=== PATIENT | female | born 1985 ===

== ENCOUNTER → 2019-10-21 09:28 | Outpatient (CLI) | payer OTHER, SELFPAY ==
[2019-10-21 11:29] LABS: Hematocrit 34.5 % (36-46); Hemoglobin 11.7 g/dL (12.0-16.0)
[2019-10-21 11:44] LABS: GTT (PREG) 1 Hour PP 50gm Dose 134 mg/dL (76-139)
== END ==
PROVIDERS: Referring Provider Family Medicine; Visit Provider Family Medicine
DX: Z34.82 Encounter for supervision of other normal pregnancy, second trimester (principal); Z3A.23 23 weeks gestation of pregnancy
CPT/HCPCS: 36415; 82950; 85014; 85018

== ENCOUNTER → 2019-11-17 09:18 | Outpatient (CLI) | payer OTHER, SELFPAY ==
--- NOTE | 2019-11-17 09:22 | DI.US.S_ITS ---
PROCEDURE: US OB LIMITED INDICATIONS: GROWTH- TWINS OUTSIDE/PRIOR DATING DATA: Last menstrual period (LMP): 05/11/19. LMP-based estimated date of delivery (STEPHEN): 02/15/20. First available dating scan (date and location): This study, 11/17/19. Estimated date of delivery (STEPHEN) from first available dating scan: 02/17/20. TECHNIQUE: Real-time scanning was performed of the fetuses, with image documentation and biometric measurements. Endovaginal scanning: Not needed COMPARISON: None. FINDINGS: General: An intrauterine monochorionic-diamniotic twin is present, as evidenced by combined placentas and 2 separate amniotic sacs. Composite amniotic fluid index: 15.2 cm for twin A., 9.8 cm for twin B. Maternal cervical canal: 3.9 cm long. Normal lower limit is 2.5 cm. FETUS A: Fetus is located on the maternal left side, and is in vertex presentation. Amniotic fluid volume: 15.2 cm. Placental position is posterior, without previa. heart rate: 144 beats per minute. biometrics: Biparietal diameter: 6.8 cm, 27 weeks 2 days Head circumference: 24.5 cm, 26 weeks 5 days Abdominal circumference: 20.0 cm, 24 weeks 4 days Femur length: 5.0 cm, 26 weeks 6 days Estimated gestational age from initial scan: not applicable. Composite gestational age from present scan: 26 weeks 3 days Estimated weight and percentile: 853 g, lower 5th percentile Measurement variability for biometric dating: +/- 7 days from 14 weeks to 15 weeks 6 days gestation, +/- 10 days from 16 weeks to 21 weeks 6 days gestation, +/- 2 weeks from 22 weeks to 27 weeks 6 days gestation, +/- 3 weeks for 28 weeks gestation or later. weight reference: 4500 g or EFW >90/95% is considered macrosomia or large for gestational age. EFW <10% is small for gestational age. EFW 5% or less is considered intra-uterine growth restriction. FETUS B: Fetus is located on the maternal right side, and is in vertex presentation. Amniotic fluid volume: 9.8 cm. Placental position is posterior, without previa. heart rate: 147 beats per minute. biometrics: Biparietal diameter: 6.9 cm, 27 weeks 6 days Head circumference: 24.4 cm, 26 weeks 3 days Abdominal circumference: 22.2 cm, 26 weeks 4 days Femur length: 4.9 cm, 26 weeks 3 days Estimated gestational age from initial scan: not applicable. Composite gestational age from present scan: 26 weeks 6 days Estimated weight and percentile: 957 g, 19th percentile Measurement variability for biometric dating: +/- 7 days from 14 weeks to 15 weeks 6 days gestation, +/- 10 days from 16 weeks to 21 weeks 6 days gestation, +/- 2 weeks from 22 weeks to 27 weeks 6 days gestation, +/- 3 weeks for 28 weeks gestation or later. weight reference: 4500 g or EFW >90/95% is considered macrosomia or large for gestational age. EFW <10% is small for gestational age. EFW 5% or less is considered intra-uterine growth restriction. IMPRESSION: Monochorionic diamniotic twin gestation, with each twin demonstrating current vertex presentation and posterior placenta without previa. Amniotic fluid volume overall appears normal for each twin. Estimated weight is at the lower 5th percentile for twin A and at the 19th percentile for twin B. anatomic survey was not performed. There may be additional OB ultrasound studies performed elsewhere which should be reviewed by the supervising FLAME HARDENING MACHINE OPERATOR specialist. Dictated by: Riley Remy M.D. on 11/17/2019 at 13:31 Approved by: Riley Remy M.D. on 11/17/2019 at 13:40
== END ==
PROVIDERS: Referring Provider Family Medicine; Visit Provider Family Medicine
DX: Z36.89 Encounter for other specified antenatal screening (principal); O30.032 Twin pregnancy, monochorionic/diamniotic, second trimester; Z3A.26 26 weeks gestation of pregnancy
CPT/HCPCS: 76812; 76815

== ENCOUNTER 2020-01-04 00:48 | Inpatient (IN) | payer OTHER, SELFPAY ==
--- NOTE | 2020-01-04 01:18 | P.HPOB_ITS ---
OB HPI Date/Time Date of admission: 01/04/20 Date Patient Seen: 01/04/20 Time Patient Seen: 02:00 History of Present Condition Chief complaint: Evaluation of labor : 1 Para: 2 Estimated Date of Delivery: 02/15/20 Estimated Gestational Age (weeks): 34 Narrative: Marilee Hunter is a 34 year old @34+0 with clomid-achieved di/di twins who presented to labor and delivery after SROM at home, fully dilated with both babies in vertex presentation. She delivered Baby A precipitously, and delivered baby B 45 minutes later, augmented by AROM of baby B. She reports that her had been previously uncomplicated, though she transferred care from the [employer] [facility] at 19 weeks. Both babies had been being rex tored and were appropriately grown, and she had had rare contractions but no prior episodes of vaginal bleeding, decreased movement, fevers, chills, or any other complaints obstetrical or otherwise prior to tonight. She denies any contributory medical, surgical, or cigarette making machine catcher history, though history taking at presentation was complicated by her imminent delivery. History of Present care: good care Dating criteria: LMP confirmed by 1st trimester US Ultrasounds: normal mid trimester US Obstetrical complications: none Medical complications: none Preadmission Labs Blood type: O (+) positive -: Antibody screen: negative, Cystic fibrosis screen: negative, GBS status: unknown, HBsAG: negative, HIV: negative and RPR/VDLR: negative -: Chlamydia screen: not detected and Gonorrhea screen: not detected -: Rubella: immune and Varicella: immune Integrated screen: WNL 1 hr GTT: 134 Evaluation Evaluation Baseline heart rate: 120 Variability: Average (6-10) monitor accelerations: Present monitor decelerations: Variable Contraction Frequency (minutes): 2 Uterine Contraction Intensity: Strong/Firm Category of Tracing: II Cervical dilation (cm): 10 Cervical effacement (%): 100 station: +3 PFSH Medical History Infertility (Acute) Surgical History History of tonsillectomy (Acute ~1996) Family History Father No problems noted. Mother No problems noted. Grandfather No problems noted. Grandmother Lung abnormality Heavy smoker Grandmother No problems noted. Grandfather No problems noted. Social History marital status: household members: spouse education level: college (student ) occupational status: unemployed current occupational exposures/hazards: No special geovany needs: No Smoking Status: Never smoker Meds Home Medications and Allergies Home Medications Medication Instructions Recorded Confirmed Type prenat.vits,bonita,[id number] 1 tab PO DAILY #90 tab 12/23/19 01/02/20 Rx zinc 50 mg tablet 50 mg PO DAILY #90 tab 12/23/19 01/02/20 Rx Allergies Allergy/AdvReac Type Severity Reaction Status Date / Time No Known Drug Allergies Allergy Verified 12/23/19 08:20 Review of Systems Constitutional Constitutional: Reports system reviewed and no additional complaints, except as documented Cardiovascular Cardiovascular: Reports system reviewed; no additional complaints, except as documented Respiratory Respiratory: Reports system reviewed and no additional complaints, except as documented Gastrointestinal Gastrointestinal: Reports system reviewed and no additional complaints, except as documented Genitourinary Genitourinary: Reports system reviewed and no additional complaints, except as documented Neurologic Neurologic: Reports system reviewed and no additional complaints, except as documented Exam Const Other: Actively laboring GI Palpation: soft and No tender External Female Exam: external appearance normal OB/External & Speculum: deferred Objective Labs Result Diagrams: 01/04/20 01:20 Assessment and Plan Assessment and Plan Assessment and Plan narrative: This patient presented in active labor, and had a vaginal delivery of both twins shortly thereafter. Her delivery was uncomplicated, and both twins are being transferred to a facility with a NICU. Anticipate maternal discharge within 24 hours to follow baby. Routine care.
--- NOTE | 2020-01-04 01:35 | PC.NURSE ---
addendum: 20G IV placed in patients right forearm by me at 01:20. labs were drawn and labeled at bedside and sent to lab. primary RN aware. blood band tubes drawn and patient blood banded with 2nd RN verification and blood tubes sent to lab. primary RN aware.
--- NOTE | 2020-01-04 01:35 | PC.NURSE ---
20G IV placed by me at 01:20. labs were drawn and labeled at bedside and sent to lab. primary RN aware. blood band tubes drawn and patient blood banded with 2nd RN verification and blood tubes sent to lab. primary RN aware.
[2020-01-04 01:49] LABS: Add Manual Diff / Slide Review NO; Basophils Absolute Auto 0 /uL (0-100); Basophils Percent Auto 0.5 % (0-2); Eosinophils Absolute Auto 100 /uL (0-450); Eosinophils Percent Auto 1.2 % (2-4); Hematocrit 38.6 % (36-46); Hemoglobin 13.4 g/dL (12.0-16.0); Lymphocytes Absolute Auto 2600 /uL (1100-4500); Lymphocytes Percent Auto 37.1 % (25-40); Mean Corpuscular HGB Conc 34.7 % (30-36); Mean Corpuscular Hemoglobin 28.4 PG (26-34); Mean Corpuscular Volume 82.1 fL (80-100); Monocytes Absolute Auto 800 /uL (0-900); Monocytes Percent Auto 12.2 % (3-14); Neutrophils Absolute Auto 3400 /uL (1500-7000); Red Cell Distribution Width 13.6 % (11.6-14.8); White Blood Cell Count 6.9 X10^3/uL (4.5-11.0)
[2020-01-04 02:17] LABS: Platelet Count 102 X10^3/uL (150-400)
--- NOTE | 2020-01-04 03:03 | P.PCNOB_ITS ---
Events: Labor < 37 Weeks Labor & Delivery Delivery date: 01/04/20 Intrapartal events: Precipitous Labor < 3 hours, Acceleration and Deceleration Cervical ripening method: none Induction method: none Delivery augmentation: rupture of membranes Delivery monitor: external FHT and external uterine Route of delivery: L&D Laceration Description: Perineal - 2nd Degree Delivery repair: vicryl Estimated blood loss (mL): 250 Anesthesia type: None Complications: labor Narrative: This patient is a 34yo now , s/p x2 of spontaneous di/di twins at 34+0. The patient presented in active labor, fully dilated and ruptured for clear fluid with twin A and with both twins in vertex presentation. She underwent uncomplicated delivery of twin A after a short second stage, followed by AROM of twin B for clear fluid. Baby B was delivered vaginally shortly thereafter with no complications. Both twins had no nuchal cord, and the shoulders for both delivered with ease. A small 2nd degree perineal laceration was repaired in the usual fashion, though the repair was initially complicated by poor pain control. Due to ongoing mild bright red bleeding and patient intolerance of exams and fundal massage, 1x IM 0.2mg methergine was administered along with [address] Cutler was present for the delivery of both twins. [place] Baby 1: Infant gender: Female Presentation: vertex position: Left Occiput Transverse (OA) Placenta delivery description: Spontaneous cord vessel description: 3 Vessels score (1 min): 7 score (5 min): 7 Narrative: Weight 1645g 2: Infant gender: Male Presentation: vertex position: Left Occiput Transverse (ROBERT) Placenta delivery description: Spontaneous cord vessel description: 3 Vessels score (1 min): 9 score (5 min): 9 Narrative: 1980g Plan for aftercare: Routine care. Expedite discharge to follow babys on transfer to NICU.
[2020-01-04] MEDS: LACTATED RINGERS 1,000 ML 100 ML IV (04:01)
[2020-01-04] MEDS: OXYTOCIN 10 UNIT/ML VIAL 20 UNIT (04:01)
[2020-01-04] MEDS: KETOROLAC 30 MG/ML VIAL IV (04:12)
[2020-01-04 06:17] VITALS: BP 120/84
[2020-01-04] MEDS: METHYLERGONOVINE 0.2 MG/ML VIAL IM (06:57)
[2020-01-04 07:27] LABS: COVID19 -Nasal RAPID Negative (Negative)
--- NOTE | 2020-01-04 10:52 | PM.OBPN.1 ---
Subjective - OB Subjective Patient comments: no complaints [place] baby status: NICU [place] feeding status: other (Patient for discharge, has not initiated pumping) Narrative: This patient is a 34yo PPD#0 s/p vaginal delivery of 34 week twins 8 hours ago. The delivery was uncomplicated, with mild lochia and a small 2nd degree perineal laceration repaired in the usual fashion. The patient is doing well this AM, ambulating, tolerating PO, voiding and passing flatus, and with mild lochia. The babies were transferred to a facility with a NICU due to prematurity, and the patient and her partner strongly desire discharge to follow the babies. We discussed precautions including bleeding, infection, and PIH symptoms, but patient is stable and will be at a large hospital, making discharge appropriate despite the recent delivery. Date Patient Seen: 01/04/20 Time Patient Seen: 10:55 Exam Vital Signs (past 8 hours): - 01/04/20 06:17 Blood Pressure 120/84 Const General: cooperative, healthy appearing and comfortable Resp Effort & Inspection: normal respiratory effort Auscultation: clear to auscultation bilaterally Cardio Rate: regular rate Rhythm: regular rhythm GI Palpation: soft and No tender External Female Exam: external appearance normal Objective Labs Result Diagrams: 01/04/20 01:20 Labs: Laboratory Results - last 24 hr 01/04/20 01/04/20 01/04/20 01:20 01:20 04:05 WBC 6.9 RBC 4.70 Hgb 13.4 Hct 38.6 MCV 82.1 MCH 28.4 MCHC 34.7 RDW 13.6 Plt Count 102 L Neut % (Auto) 49.0 L Lymph % (Auto) 37.1 [place] % (Auto) 12.2 Eos % (Auto) 1.2 L Baso % (Auto) 0.5 Neut # (Auto) 3400 Lymph # (Auto) 2600 [place] # (Auto) 800 Eos # (Auto) 100 Baso # (Auto) 0 COVID-19 PCR Negative Blood Type O Positive Antibody Screen Negative Assessment & Plan Plan day: 0 plan OB: other (Discharge to follow babies to NICU) Comments: This patient is meeting goals, had an uncomplicated delivery, and is for discharge to be with her babies in the NICU. Patient and partner vocalized understanding of precautions. Time Spent With Patient Time: Total time spent is greater than 50% in coordination of care (as documented) at patient's floor/unit and/or counseling patient: Time with patient: 15-24 minutes
--- NOTE | 2020-01-04 11:02 | PM.OBDS.1 ---
Discharge Providers Provider Date of admission: 01/04/20 00:48 Discharge Date: 01/04/20 Primary care physician: BATSHEVA Ordonez Consults: 01/05/20 03:02 Consult to Solar Panel Technician Routine Comment: Discharge provider: Latosha Cuadra MD Summary Hospital Course Date Patient Seen: 01/04/20 Time Patient Seen: 11:03 Procedures: vaginal delivery Hospital Course: This patient presented fully dilated after SROM at home, and was delivered of 34 week twins vaginally x2 without complication. Her delivery was uncomplicated with a small perineal laceration repaired in the usual fashion, normal vitals, mild lochia, and no other complaints. She was discharged after meeting all goals at 8 hours , in order to facilitate following the babies to the NICU at [facility]. Peripartum Data Delivery Method: Natural Vaginal Laceration description: Perineal - 2nd Degree complications: none 1: Gender: Female Disposition of : NICU 2: Gender: Male Disposition of : NICU Discharge Diagnosis (1) Vaginal delivery: Status: Acute Status at Discharge Cognitive/behavioral status at discharge: oriented Functional status at discharge: independent ambulation Overall status at discharge: patient is progressing back to baseline Time Spent with Patient Time attestation: Total time spent providing and/or coordinating discharge services: Time spent: Less than 30 minutes Objective Labs Result Diagrams: 01/04/20 01:20 Labs: Laboratory Results - last 24 hr 01/04/20 01/04/20 01/04/20 01:20 01:20 04:05 WBC 6.9 RBC 4.70 Hgb 13.4 Hct 38.6 MCV 82.1 MCH 28.4 MCHC 34.7 RDW 13.6 Plt Count 102 L Neut % (Auto) 49.0 L Lymph % (Auto) 37.1 [place] % (Auto) 12.2 Eos % (Auto) 1.2 L Baso % (Auto) 0.5 Neut # (Auto) 3400 Lymph # (Auto) 2600 [place] # (Auto) 800 Eos # (Auto) 100 Baso # (Auto) 0 COVID-19 PCR Negative Blood Type O Positive Antibody Screen Negative Exam Vital Signs (past 8 hours): - 01/04/20 06:17 Blood Pressure 120/84 Discharge Plan Discharge Plan Patient Disposition: Home Discharge orders & Medications Prescriptions: Continued prenat.vits,bonita,[id number] Tablet 1 tab PO DAILY Qty: 90 RF: 2 zinc 50 mg tablet 50 mg PO DAILY Qty: 90 RF: 2 Follow up/Referrals: Isai Russ MD [Physician] - 1 Month Felicity Mera ARNP [Primary Care Provider] - Diet/Activity/Treatments Diet: Regular Activity: Nothing in the vagina for 6 weeks. Avoid heavy lifting for 6 weeks. If you develop increasing bleeding, fevers, chills, nausea, vomiting, headache, visual changes, or any other symptoms or concerns, call the office or proceed to the nearest delivery room. Skin/Wound/Dressing Care Report to your healthcare provider any signs of infection, such as:: chills, fever, night sweats and increased pain Visit Report/Discharge Packet Instructions: DI for Labor and Delivery, Vaginal Discharge Data Primary Care Provider: Felicity Mera
[2020-01-04 12:00] VITALS: BP 120/84; PULSE 90; RESP 18; TEMP 37.1
== END 2020-01-04 13:00 | disposition home or self-care (01) | DRG 805 ==
PROVIDERS: Admitting Provider Obstetrics & Gynecology; PCP Nurse Practitioner Family; Referring Provider Obstetrics & Gynecology; Visit Provider Obstetrics & Gynecology
DX: O70.1 Second degree perineal laceration during delivery (principal); O60.23X0 Term delivery with preterm labor, third trimester, not applicable or unspecified; Z37.2 Twins, both liveborn; O30.043 Twin pregnancy, dichorionic/diamniotic, third trimester; Z3A.34 34 weeks gestation of pregnancy; Z11.59 Encounter for screening for other viral diseases; O62.3 Precipitate labor
CPT/HCPCS: 59409; 59410; 76815; 85025; 86850; 86900; 86901; 87635; G0379; J1885; J2210; J2590